=== PATIENT | female | born 1975 | race Caucasian/White ===

== ENCOUNTER 2019-04-02 09:33 | Outpatient (CLI) | payer OTHER ==
--- NOTE | 2019-04-02 15:10 | Ultrasound Report ---
ULTRASOUND PELVIC COMPLETE ULTRASOUND TRANSVAGINAL HISTORY: Other specified abnormal uterine and vaginal bleeding. COMPARISON: 01/31/16. TECHNIQUE: Transabdominal and transvaginal ultrasound with color doppler interrogation. FINDINGS: Uterus: The uterus is moderately enlarged measuring 14 x 9 x 8 cm. A large fundal fibroid is suspected measuring up to 8.5 cm in diameter. An intramural fibroid is identified in the posterior wall measuring 5.9 cm. Additional smaller fibroids are likely present. Small lesion in the cervix measuring up to 1.2 cm is again identified and unchanged. The significance of this is unclear. Endometrium: The endometrium is poorly imaged secondary to fibroid disease. I believe the endometrium measures 13 mm in thickness. No mass or fluid collection. Right ovary: 4.2 x 1.7 x 2.1 cm. No focal abnormality. Left ovary: 3.9 x 3.6 x 2.6 cm. A 3.0 cm complex cyst with fine internal septations is identified suggestive of a hemorrhagic cyst. No pelvic fluid or mass is identified. Normal color doppler interrogation. IMPRESSION: Uterine fibroid disease as described. This appears slightly more advanced than the exam in 2016. Complex left ovarian cyst consistent with a hemorrhagic cyst. Consider followup in 6 weeks to ensure resolution.
== END 2019-04-02 09:34 | disposition home or self-care (01) ==
LOC: US 09:33
PROVIDERS: ATTEND Obstetrics & Gynecology
DX: D25.1 Intramural leiomyoma of uterus (principal); N83.202 Unspecified ovarian cyst, left side
CPT/HCPCS: 76830; 76856

== ENCOUNTER 2019-07-29 09:21 | Day surgery (SDC) | payer OTHER ==
[2019-07-22 10:41] LABS: Hematocrit 25.9 % (30.3-42.9); Hemoglobin 8.3 gm/dl (10.1-14.3); Mean Corpuscular HGB Conc 32 % (30-34); Mean Corpuscular Volume 74 fl (79-97); Platelet Count 521 K/mm3 (140-440); Red Blood Count 3.52 M/mm3 (3.65-5.03); Red Cell Distribution Width 15.7 % (13.2-15.2)
--- NOTE | 2019-07-28 22:12 | History and Physical Report ---
History of Present Illness Date of examination: 07/28/19 Chief complaint: Dysfunctional Uterine Bleeding History of present illness: Pt is a 44 year old female who presents for surgical evaluation of dysfunctional uterine bleeding secondary to inadequate in-office endometrial biopsy. Pt does report intermittent dyspnea that has not yet been evaluated. 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 History: fibroids Family/Genetic History: none Social history: no significant social history, - Obstetrical History : 2 Para: 2 Hx # Term Pregnancies: 2 Number of Pregnancies: 0 Spontaneous Abortions: 0 Induced : 0 Number of Living Children: 2 Medications and Allergies Allergies Allergy/AdvReac Type Severity Reaction Status Date / Time No Known Allergies Allergy Unverified 01/31/16 09:45 Home Medications Medication Instructions Recorded Confirmed Last Taken Type No Known Home Medications [No 07/21/19 07/21/19 Unknown History Reported Home Medications] Review of Systems All systems: negative - Vital Signs Vital signs: Vital Signs Temp Pulse Resp BP Pulse Ox 98 F 72 18 126/65 100 07/22/19 10:15 07/22/19 10:15 07/22/19 10:15 07/22/19 10:15 07/22/19 10:15 Temp Pulse Resp BP Pulse Ox 98 F 72 18 126/65 100 07/22/19 10:15 07/22/19 10:15 07/22/19 10:15 07/22/19 10:15 07/22/19 10:15 - Physical Exam Breasts: Positive: deferred Cardiovascular: Regular rate Lungs: Positive: Clear to auscultation Abdomen: Positive: soft Extremities: Positive: normal Results Result Diagrams: 07/22/19 09:55 All other labs normal. Assessment and Plan A: Dysfunctional Uterine Bleeding Fibroid Uterus Anemia Thrombocytosis Intermittent Dyspnea P: Preop Chest Xray Proceed with Hysteroscopy, Myosure endometrial sampling and other indicated procedures
[~2019-07-29 09:21] MED LIST: ANCEF/STERILE WATER 2 GM/20 ML 2 GM/20 ML SYRINGE IV NR; LACTATED RINGERS 1,000 ML IV SCH
[2019-07-29] MEDS ORDERED: ZOFRAN IV PRN (09:32)
--- NOTE | 2019-07-29 09:33 | Anesthesia Day of Surgery ---
Anesthesia Day of Surgery - Day of Surgery Patient Examined: Yes Patient H&P Reviewed: Yes Patient is NPO: Yes
--- NOTE | 2019-07-29 09:37 | Anesthesia Consultation ---
Anesthesia Consult and Med Hx Date of service: 07/29/19 - Airway Anesthetic Teeth Evaluation: Good ROM Head & Neck: Adequate Mental/Hyoid Distance: Adequate Mallampati Class: Class III Intubation Access Assessment: Probably Good - Pre-Operative Health Status ASA Pre-Surgery Classification: ASA2 Proposed Anesthetic Plan: General - Pulmonary Hx Respiratory Symptoms: Yes (Dyspnea) - Central Nervous System Hx Psychiatric Problems: No - Hematic Hx Anemia: Yes - Other Systems Hx Cancer: No
[2019-07-29] MEDS ORDERED: XYLOCAINE MPF 2% ONE (10:00)
[2019-07-29] MEDS ORDERED: DECADRON ONE (10:00)
[2019-07-29] MEDS ORDERED: ZOFRAN ONE (10:00)
[2019-07-29] MEDS ORDERED: PHENYLEPHRINE/NS Syringe 1,000 MCG/10 ML IV ONE (10:00)
[2019-07-29 10:01] LABS: Hematocrit 28.4 % (30.3-42.9); Hemoglobin 8.8 gm/dl (10.1-14.3); Mean Corpuscular HGB Conc 31 % (30-34); Mean Corpuscular Volume 73 fl (79-97); Platelet Count 460 K/mm3 (140-440); Red Blood Count 3.92 M/mm3 (3.65-5.03); Red Cell Distribution Width 15.4 % (13.2-15.2)
[2019-07-29 10:16] LABS: BUN/Creatinine Ratio 16; Blood Urea Nitrogen 11 mg/dL (7-17); Calcium 8.9 mg/dL (8.4-10.2); Hemolysis Index 0
--- NOTE | 2019-07-29 10:26 | XRay Report ---
CHEST 1 VIEW INDICATION: Pre Operative //intermittent SOB. COMPARISON: 07/25/2018 FINDINGS: Support devices: None. Heart: Within normal limits. Pulmonary vasculature: Normal. Lungs/Pleura: No acute air space or interstitial disease. Additional findings: None. IMPRESSION: Normal chest. Signer Name: Behzad Alcocer MD Signed: 07/29/2019 10:21 AM Workstation Name: [id number]
[2019-07-29] MEDS ORDERED: DIPRIVAN 10 MG/ML IV ONE (11:52)
[2019-07-29] MEDS ORDERED: SUBLIMAZE ONE (11:52)
[2019-07-29] MEDS ORDERED: NACL 0.9% IR ONE (12:11)
[2019-07-29] MEDS ORDERED: SILVER NITRATE TP ONE ×2 (12:18→12:33)
[2019-07-29] MEDS ORDERED: LACTATED RINGERS 1,000 ML ONE (12:38)
--- NOTE | 2019-07-29 12:52 | Operative Report ---
Operative Report Operative Report: Date of procedure: July 29, 2019 Preoperative diagnosis: 1)Dysfunctional Uterine Bleeding 2)Uterine Fibroids 3) Anemia Postoperative diagnosis: Same Procedure: 1)Hysteroscopy 2)Myosure Endometrial Sampling Surgeon: Ashlyn Zimmerman M.D. Findings: 1) 16-18 wk sized fibroid uterus 2) Proliferative endometrium Anesthesia: General Estimated blood loss: minimal Specimens: endometrial curettings to pathology Drains: None Complications: None Disposition: Stable to PACU Indications for procedure: Pt is a 44 year old female who presents for surgical evaluation of dysfunctional uterine bleeding secondary to inadequate in-office endometrial biopsy. Operation in detail: After the risks, benefits, alternatives and complications of the procedure were explained to the patient, she gave informed consent for the procedure. She was subsequently taken to the operating room and placed in the dorsal supine position with her IV noted to be running well. SCDs noted to be in place and functioning. General anesthesia was then induced without difficulty. The patient was in placed in dorsal lithotomy position and prepped and draped in normal sterile fashion. A timeout was performed. An exam under anesthesia was performed yielding a large anteverted uterus. A red rubber catheter was used to drain the bladder yielding clear urine. An open sided speculum was then placed into the vagina for adequate visualization of the cervix. The anterior lip of the cervix was then grasped with a tenaculum for traction. There was difficulty passing a sound into the uterus secondary to the location of the uterine fibroids. The hysteroscope was introduced into the cervix and hydrodilation was used to allow adequate space for passage of the hysteroscope into the endometrial cavity. Next the endometrial cavity was visualized which revealed a proliferative emdometrium. The Myosure device was used to obtain an endometrial sample. All curettings were sent to pathology. All instruments were removed from the uterus atraumatically. At this time, the single-tooth tenaculum was removed from the cervix. Silver nitrate was placed over the tenaculum puncture sites for hemostasis. All instruments were removed from the vagina atraumatically and the procedure was ended. The patient was placed into the dorsal supine position and extubated without difficulty. She was subsequently taken to the PACU in stable condition. She tolerated the procedure well. All counts were correct 2.
--- NOTE | 2019-07-29 13:02 | Short Stay Summary ---
Short Stay Documentation Date of service: 07/29/19 - History H&P: dictated Social history: no significant social history, - Allergies and Medications Current Medications: Allergies No Known Allergies Allergy (Unverified 01/31/16 09:45) Home Medications Medication Instructions Recorded Confirmed Last Taken Type No Known Home Medications [No 07/21/19 07/21/19 Unknown History Reported Home Medications] Active Medications Fentanyl (Sublimaze) 50 mcg IV Q5MIN PRN PRN Reason: Pain , Severe (7-10) Stop: 07/29/19 20:00 Lactated Ringer's (Lactated Ringers) 1,000 mls @ 75 mls/hr IV DIRECT FREDO Last Admin: 07/29/19 10:15 Dose: 75 mls/hr Documented by: Cefazolin Sodium (Ancef/Sterile Water 2 Gm/20 Ml) 2 gm in 20 mls @ 80 mls/hr IV PREOP NR; Protocol Stop: 07/29/19 23:45 Ondansetron HCl (Zofran) 4 mg IV ONCE PRN PRN Reason: Nausea And Vomiting Stop: 07/29/19 16:00 - Physical exam Breasts: deferred - Brief post op/procedure progress note Date of procedure: 07/29/19 Pre-op diagnosis: 1) DUB 2) Fibroid Uterus Post-op diagnosis: same Procedure: Hysteroscopy, Myosure endometrial sampling Anesthesia: GETA Findings: 1) 16-18 wk sized fibroid uterus 2) Proliferative endometrium Surgeon: MATHIEU RAMOS Estimated blood loss: minimal Pathology: list (endometrial sampling) Specimen disposition: to lab Condition: stable - Hospital course Hospital course: Pt underwent hysteroscopy, Myosure endometrial sampling which she tolerated well. She was observed in the PACU until she met discharge criteria. She will follow up in the office next week. - Disposition Condition at discharge: Stable Disposition: DC- TO HOME OR SELFCARE - Discharge Diagnoses (1) DUB (dysfunctional uterine bleeding) Status: Acute (2) Fibroid uterus Status: Acute Qualifiers: Uterine leiomyoma location: unspecified location Qualified Code(s): D25.9 - Leiomyoma of uterus, unspecified (3) Anemia Status: Acute Qualifiers: Anemia type: unspecified type Qualified Code(s): D64.9 - Anemia, unspecified Short Stay Discharge Plan Activity: other (Nothing in vagina, no baths, no intercourse for 4 weeks ) Weight Bearing Status: Full Weight Bearing Diet: regular Follow up with: HUA BERUMEN MD [Primary Care Provider] - 7 Days MATHIEU RAMOS MD [Staff Physician] - 7 Days (Please call to schedule appt ) Prescriptions: Docusate Sodium [Colace] 100 mg PO BID PRN #60 capsule PRN Reason: Constipation Ferrous Sulfate [Feosol 325 MG tab] 325 mg PO BID #60 tablet metroNIDAZOLE [Flagyl] 500 mg PO Q12HR #14 tab Ibuprofen [Motrin] 800 mg PO Q8HR PRN #30 tablet PRN Reason: Pain, Moderate (4-6) oxyCODONE /ACETAMINOPHEN [Percocet 5/325] 1 tab PO Q6HR PRN #30 tablet PRN Reason: Pain
[2019-07-29] MEDS: SUBLIMAZE IV PRN ×2 (13:05→13:17)
[2019-07-29 13:45] VITALS: BP 133/77
--- NOTE | 2019-07-29 21:18 | Post Anesthesia Evaluation ---
- Post Anesthesia Evaluation Patient Participated: Yes Airway Patent: Yes Stable Respiratory Function: Yes Nausea/Vomiting: No Temp > 96.8F: Yes Pain Manageable: Yes Adequeate Hydration: Yes Anesthesia Complications: No Block Receding Appropriately: Not Applicable Patient on Ventilator: No
== END 2019-07-29 09:22 | disposition home or self-care (01) ==
LOC: OR 09:21
PROVIDERS: ATTEND Obstetrics & Gynecology
DX: N93.8 Other specified abnormal uterine and vaginal bleeding (principal); D64.9 Anemia, unspecified; R06.02 Shortness of breath; Z90.49 Acquired absence of other specified parts of digestive tract; Z98.890 Other specified postprocedural states; Z79.899 Other long term (current) drug therapy
CPT/HCPCS: 36415; 58558; 71045; 80048; 81025; 85025; 85027; 86850; 86900; 86901; 88305; A4217; C1782; J0690; J1100; J2370; J2405; J2704; J3010; J7120

== ENCOUNTER 2019-08-27 06:09 | Observation (INO) | payer OTHER ==
[2019-08-22 09:55] LABS: Hematocrit 29.5 % (30.3-42.9); Hemoglobin 9.3 gm/dl (10.1-14.3); Mean Corpuscular HGB Conc 32 % (30-34); Mean Corpuscular Volume 75 fl (79-97); Platelet Count 539 K/mm3 (140-440); Red Blood Count 3.95 M/mm3 (3.65-5.03)
[2019-08-22 10:00] LABS: Red Cell Distribution Width 20.4 % (13.2-15.2)
--- NOTE | 2019-08-22 10:30 | Anesthesia Consultation ---
Anesthesia Consult and Med Hx Date of service: 08/27/19 - Airway Anesthetic Teeth Evaluation: Partials ROM Head & Neck: Adequate Mental/Hyoid Distance: Adequate Mallampati Class: Class III Intubation Access Assessment: Possibly Difficult (previous easy LMA 4) - Pulmonary Exam CTA: Yes - Cardiac Exam Cardiac Exam: RRR - Pre-Operative Health Status ASA Pre-Surgery Classification: ASA2 Proposed Anesthetic Plan: General Nerve Block: TAP - Pulmonary Hx Smoking: No Hx Respiratory Symptoms: No - Cardiovascular System Hx Hypertension: No Hx Heart Attack/AMI: No - Central Nervous System CVA: No - Gastrointestinal Hx Gastroesophageal Reflux Disease: No - Endocrine Hx Renal Disease: No Hx Liver Disease: No Hx Insulin Dependent Diabetes: No Hx Non-Insulin Dependent Diabetes: No Hx Thyroid Disease: No - Hematic Hx Anemia: Yes (Fe supplements) - Other Systems Hx Obesity: No - Additional Comments Anesthesia Medical History Comments: No hx anesthetic complications.
[2019-08-22 10:45] LABS: Anisocytosis 1+; Hypochromasia 1+; Platelet Estimate Consistent w Auto; Total Cells Counted 100
[~2019-08-27 06:09] MED LIST changes: -ANCEF/STERILE WATER 2 GM/20 ML 2 GM/20 ML SYRINGE IV NR; +CELECOXIB 200 MG CAP PO NR; +GABAPENTIN 300 MG CAP PO NR; -LACTATED RINGERS 1,000 ML IV SCH; +MIDAZOLAM 2 MG/2 ML INJ IV NR; +ceFAZolin/STERILE WATER 2 GM/20 ML SYRINGE IV NR; +fentaNYL 100 MCG/2 ML INJ IV PRN
[2019-08-27] MEDS ORDERED: BACTERIOSTATIC SODIUM CHLORIDE 0.9% 30 ML VIAL INFILTRATI ONE (06:48)
[2019-08-27] MEDS: LACTATED RINGERS 1,000 ML IV SCH ×2 (07:00→07:55)
[2019-08-27] MEDS ORDERED: BUPIVACAINE-EPINEPHRINE/PF 0.5%-1:200,000 (30 ML) VIAL INFILTRATI ONE (07:10)
[2019-08-27] MEDS ORDERED: LIDOCAINE (1%) 10 MG/1 ML VIAL 20 ML MDV ONE (07:10)
[2019-08-27] MEDS ORDERED: PROPOFOL 200 MG/20 ML VIAL IV ONE (07:15)
[2019-08-27] MEDS ORDERED: HYDROmorphone 1 MG/1 ML INJ ONE ×2 (07:15→10:53)
[2019-08-27] MEDS ORDERED: ROCURONIUM 50 MG/5 ML INJ IV ONE (07:15)
[2019-08-27] MEDS ORDERED: LIDOCAINE MPF (2%) 20 MG/1 ML VIAL 5 ML ONE (07:15)
--- NOTE | 2019-08-27 07:15 | History and Physical Report ---
History of Present Illness Date of examination: 08/27/19 Date of admission: 08/27/2019 Chief complaint: uterine fibroids History of present illness: 44-year-old who presents with a history of symptomatic uterine fibroids. The patient reports a history of heavy menses complicated by pain. Pelvic ultrasound demonstrated an enlarged fibroid uterus measuring 14 cm. The largest leiomyoma measured 8.5 cm and there was an additional myoma that was 5.9 cm. The patient has elected to undergo definitive surgical management and is scheduled to undergo robotic hysterectomy. Past History Past Medical History: high cholesterol Past Surgical History: appendectomy, cholecystectomy, section, other (hysteroscopy/polypectomy with Myosure) [employer] History: fibroids Social history: - Obstetrical History : 2 Para: 2 Hx # Term Pregnancies: 2 Number of Pregnancies: 0 Spontaneous Abortions: 0 Induced : 0 Number of Living Children: 2 Medications and Allergies Allergies Allergy/AdvReac Type Severity Reaction Status Date / Time No Known Allergies Allergy Unverified 08/18/19 16:06 Home Medications Medication Instructions Recorded Confirmed Last Taken Type Docusate Sodium [Colace] 100 mg PO BID PRN #60 capsule 07/29/19 08/18/19 Unknown Rx Ferrous Sulfate [Feosol 325 MG tab] 325 mg PO BID #60 tablet 07/29/19 08/18/19 Unknown Rx Active Meds: Active Medications Cefazolin Sodium (Ancef/Sterile Water 2 Gm/20 Ml) 2 gm IV PREOP NR Stop: 08/27/19 23:45 Celecoxib (Celebrex) 200 mg PO PREOP NR Stop: 08/27/19 16:00 Fentanyl (Sublimaze) 100 mcg IV ONCE PRN PRN Reason: sedation for nerve block Stop: 08/27/19 16:00 Gabapentin (Gabapentin) 300 mg PO PREOP NR Stop: 08/27/19 16:00 Lactated Ringer's (Lactated Ringers) 1,000 mls @ 100 mls/hr IV DIRECT FREDO Last Admin: 08/27/19 07:00 Dose: 100 mls/hr Documented by: Midazolam HCl (Versed) 2 mg IV PREOP NR Stop: 08/27/19 16:00 Review of Systems All systems: negative Genitourinary: vaginal bleeding, pelvic pain - Vital Signs Vital signs: Vital Signs Temp Pulse Resp BP Pulse Ox 98.2 F 80 20 128/86 100 08/22/19 09:20 08/22/19 09:20 08/22/19 09:20 08/22/19 09:20 08/22/19 09:20 Temp Pulse Resp BP Pulse Ox 98.2 F 80 20 128/86 100 08/22/19 09:20 08/22/19 09:20 08/22/19 09:20 08/22/19 09:20 08/22/19 09:20 - Physical Exam Breasts: Positive: deferred Cardiovascular: Regular rate Lungs: Positive: Clear to auscultation Results Result Diagrams: 08/22/19 09:25 All other labs normal. Assessment and Plan - Patient Problems (1) Anemia Current Visit: No Status: Acute Qualifiers: Plan to address problem: Scheduled to undergo a robotic hysterectomy (2) DUB (dysfunctional uterine bleeding) Current Visit: No Status: Acute (3) Fibroid uterus Current Visit: No Status: Acute Qualifiers:
[2019-08-27] MEDS ORDERED: NEOMY 40 MG/POLYMYXIN B 200,000 UNITS/ML (GU) AMPULE IR ONE ×2 (07:20→08:43)
[2019-08-27] MEDS ORDERED: ceFAZolin/Water 2 GM/20 ML 2 GM/20 ML SYRINGE IV NR (08:00)
[2019-08-27] MEDS ORDERED: SODIUM CHLORIDE 0.9% IRRIG SOLN 2000 ML IR ONE (08:44)
[2019-08-27] MEDS ORDERED: GLYCOPYRROLATE 0.4 MG/2 ML INJ ONE (10:03)
[2019-08-27] MEDS ORDERED: NEOSTIGMINE 10MG/10 ML INJ MDV ONE (10:03)
[2019-08-27] MEDS ORDERED: ONDANSETRON 4 MG/2 ML INJ ONE (10:05)
[2019-08-27] MEDS ORDERED: KETOROLAC 30 MG/1 ML INJ ONE (10:05)
[2019-08-27] MEDS ORDERED: LACTATED RINGERS 1,000 ML ONE (10:06)
[2019-08-27] MEDS ORDERED: IBUPROFEN 800 MG TAB PO PRN (10:21)
[2019-08-27] MEDS ORDERED: MORPHINE 4 MG/1 ML INJ IV PRN (10:21)
[2019-08-27] MEDS ORDERED: ACETAMINOPHEN 325 MG TAB PO PRN (10:21)
[2019-08-27] MEDS ORDERED: oxyCODONE /ACETAMINOPHEN 5-325MG TAB PO PRN (10:21)
[2019-08-27] MEDS ORDERED: ONDANSETRON 4 MG/2 ML INJ IV PRN (10:21)
--- NOTE | 2019-08-27 10:21 | Operative Report ---
Operative Report Operative Report: Date of surgery: 08/27/2019 Preoperative diagnoses: Symptomatic uterine fibroids; menorrhagia; dysmenorrhea Postoperative diagnoses: Same as above; pelvic adhesive disease Procedure: Robotic hysterectomy; lysis of adhesions Surgeon: Albania Martinez M.D. Information Systems Specialist: Jane Zimmerman Anesthesia: Gen. endotracheal anesthesia Estimated blood loss: 350 mL Pathology: Uterus, cervix, leiomyoma Indication: 44-year-old with a history of symptomatic uterine fibroids. The patient reported worsening of her clinical symptoms and elected to undergo definitive surgical management. Procedure: The patient was taken to the operating room and given general endotracheal anesthesia without complication. She is prepped and draped in a normal sterile fashion. A bivalve speculum was placed in the patient's vagina and a single- tooth tenaculum placed on the anterior lip of the cervix. The uterus was sounded with the uterine sound. A [employer] uterine manipulator was placed in the bivalve speculum was then removed. Attention was then turned to the patient's abdomen where a millimeter supra umbilical skin incision was then made. A Veress needle was placed and peritoneal entry was verified water-filled syringe. Insufflation of the peritoneal cavity was performed with CO2 gas. The 12 mm trocar was then placed under direct visualization. An additional 8 mm trocar was placed on the patient's left and right lateral side just opposite of the supraumbilical trocar. An additional 5 mm right lateral trocar was then placed as the accessory port. The patient was then placed in steep Trendelenburg. The da Blaire robot was then engaged. General survey revealed an enlarged fibroid uterus. The right adnexa was allegedly not visualize secondary to the adhesive disease. It was noted to be adherent to the right pelvic sidewall and the surrounding mesentery. The left adnexa was also noted to be adherent to the posterior aspect of the uterus and also the colon. There were multiple small bowel adhesions to the posterior aspect of the uterus. A fenestrated forcep was placed in arm 2 and a vessel sealer was placed in arm 1. The surgeon then transferred to the surgical console. Visualization was impaired secondary to the size of the luteal myoma. After extensive lysis of adhesions were performed the decision was made to perform a myomectomy in order to decompress the uterus. Unopposed scissors were use to excise the serosa of the corpus of the uterus. The scissors were used to excise only a myoma from the uterine bed. The right adnexa could not be adequately released from the right pelvic sidewall secondary to its close approximation to the ureter. The decision was made to regulate and transect the tubo-ovarian ligament. The broad ligament was coagulated and transected until the level of the uterine vessels. Attention was then turned to the left lateral aspect of the uterus. As noted previously the left adnexa was densely adherent also. The tubo-ovarian ligament was coagulated and transected to separate the adnexa from the uterus. The broad ligament was coagulated and transected. Once at the level of the uterine vessels the vessels were coagulated and transected. The tubo-ovarian ligament was then coagulated and transected. The round ligament was then coagulated and transected also. The vesicouterine peritoneum was then entered from the patient's right side. The vesical peritoneum was then entered from the left and joined in the midline. Peritoneum was reflected off of the lower uterine segment. Uterine vessels were then coagulated and then transected. The blood supply to the uterus was adequately contained, a posterior colpotomy was made. The V care ring was visualized. Posterior colpotomy was created with the monopolar scissors. The incision was continued circumferentially until anterior colpotomy was made. The cervix and uterus were amputated from the vaginal cuff. Prior to removal of the uterus through the vagina of the uterus had to be bivalved to facilitate delivery through the vagina. The uterus was then removed along with the leiomyoma through the vagina and a warm laparotomy sponge was placed and maintain the pneumoperitoneum. The vaginal cuff was then closed in a running fashion with V lock suture. Irrigation of the pelvis was performed. Hemoblast and Surgicel was applied to the incision. Secondary to the significant adhesions the decision was made to leave the fallopian tubes intact. The supraumbilical 12 mm trocar site was closed with the Ab Arrington device. The skin was then reapproximated with 4-0 Monocryl. The tissue was sent to pathology which included the cervix , leiomyoma and uterus. The patient was then successfully extubated. She was then taken to the recovery room in stable condition. All sponge laps and needle counts were correct x2.
[2019-08-27] MEDS ORDERED: HYDROmorphone 1 MG/1 ML INJ IV PRN (10:47)
[2019-08-27] MEDS: D5W/LACTATED RINGERS 1,000 ML IV SCH ×2 (13:00→20:33)
--- NOTE | 2019-08-27 14:32 | Anesthesia Day of Surgery ---
Anesthesia Day of Surgery - Day of Surgery Patient Examined: Yes Patient H&P Reviewed: Yes Patient is NPO: Yes
[2019-08-27] MEDS: KETOROLAC 30 MG/1 ML INJ IV SCH (18:14)
[2019-08-27] MEDS ORDERED: ZOLPIDEM 5 MG TAB PO PRN (22:00)
[2019-08-28] MEDS: KETOROLAC 30 MG/1 ML INJ IV SCH ×2 (00:46→05:36)
[2019-08-28 04:38] LABS: Hematocrit 22.6 % (30.3-42.9); Hemoglobin 7.1 gm/dl (10.1-14.3)
[2019-08-28] MEDS: D5W/LACTATED RINGERS 1,000 ML IV SCH (05:36)
--- NOTE | 2019-08-28 08:12 | Progress Note ---
Assessment and Plan - Patient Problems (1) Anemia Current Visit: No Status: Acute Qualifiers: Plan to address problem: patient doing well discharge home once tolerates regular diet (2) DUB (dysfunctional uterine bleeding) Current Visit: No Status: Acute (3) Fibroid uterus Current Visit: No Status: Acute Qualifiers: Subjective - Subjective Date of service: 08/28/19 Interval history: Patient without any significant complaints. Tolerating clears. Pain well controlled Patient reports: appetite normal, voiding normally, pain well controlled Objective - Vital Signs Latest vital signs: Vital Signs Temp Pulse Resp BP Pulse Ox 08/28/19 05:36 18 08/28/19 05:24 98.7 F 92 H 15 110/63 97 08/28/19 01:07 99.1 F 98 H 14 107/55 98 08/28/19 00:46 18 08/27/19 21:05 98.7 F 91 H 18 113/57 98 08/27/19 20:30 18 08/27/19 15:24 98.3 F 81 18 116/63 99 08/27/19 11:45 98.1 F 84 14 123/67 99 08/27/19 11:15 97.7 F 86 14 122/61 97 08/27/19 11:00 83 12 145/79 95 08/27/19 10:53 12 08/27/19 10:45 76 12 139/70 99 08/27/19 10:35 90 13 149/74 99 08/27/19 10:30 82 11 L 127/72 100 08/27/19 10:25 82 11 L 140/62 100 08/27/19 10:20 97 F L 84 16 140/62 100 Intake and Output 08/27/19 08/28/19 08/28/19 22:59 06:59 14:59 Intake Total 1303.75 1069.583 Output Total 850 900 Balance 453.75 169.583 Intake: IV 943.75 889.583 D5lr 1,000 ml @ 125 mls/ 943.75 889.583 hr IV DIRECT FREDO Rx#: [id number] Oral 360 Intake, Free Water 180 Output: Urine 850 900 Indwelling Catheter 850 900 Other: Total, Intake Amount 360 Total, Output Amount 850 900 Voiding Method Indwelling Catheter - Exam Abdomen: Present: normal appearance - Labs Labs: Abnormal lab results 08/28/19 Range/Units 03:55 Hgb 7.1 L (10.1-14.3) gm/dl Hct 22.6 L (30.3-42.9) %
--- NOTE | 2019-08-28 08:13 | Discharge Summary ---
Providers - Providers Date of Admission: 08/27/19 10:21 Date of discharge: 08/28/19 Attending physician: VANESSA RAMIREZ Primary care physician: HUA BERUMEN Hospitalization Reason for admission: other (Fibroids and DUB) Procedure: other (robotic hysterectomy) Discharge diagnosis: other (Fibroids) Hospital course: Patient admitted the day of surgery for a robotic hysterectomy. See op note. Postop uncomplicated Condition at discharge: Good Disposition: DC-01 TO HOME OR SELFCARE - Discharge Diagnoses (1) Anemia Status: Acute Qualifiers: (2) DUB (dysfunctional uterine bleeding) Status: Acute (3) Fibroid uterus Status: Acute Qualifiers: Plan - Discharge Medications Prescriptions: Docusate Sodium [Colace] 100 mg PO BID PRN #60 capsule PRN Reason: Constipation Ferrous Sulfate [Feosol 325 MG tab] 325 mg PO BID #60 tablet Ibuprofen [Motrin] 800 mg PO Q8HR PRN #60 tablet PRN Reason: Pain, Mild (1-3) oxyCODONE /ACETAMINOPHEN [Percocet 5/325] 1 tab PO Q6HR PRN #30 tablet PRN Reason: Pain - Provider Discharge Summary Activity: no sex for 6 weeks, no heavy lifting 4 weeks, no strenuous exercise Diet: routine Instructions: routine Additional instructions: [] Smoking cessation referral if applicable(refer to patient education folder for contact #) [] Refer to [facility] Booklet Call your doctor immediately for: * Fever > 100.5 * Heavy vaginal bleeding ( >1 pad per hour) * Severe persistent headache * Shortness of breath * Reddened, hot, painful area to leg or breast * Drainage or odor from incision. * Keep incision clean and dry at all times and follow doctor's instructions regarding bathing/showering schedule followup in 4 weeks - Follow up plan
[2019-08-28 13:51] VITALS: BP 110/54
== END 2019-08-28 14:30 | disposition home or self-care (01) ==
LOC: OR 06:09 → OB 10:21
PROVIDERS: ADMIT Obstetrics & Gynecology; ATTEND Obstetrics & Gynecology
DX: D25.9 Leiomyoma of uterus, unspecified (principal); E78.00 Pure hypercholesterolemia, unspecified; D64.9 Anemia, unspecified; N93.8 Other specified abnormal uterine and vaginal bleeding; Z90.49 Acquired absence of other specified parts of digestive tract
CPT/HCPCS: 36415; 58572; 64450; 84703; 85007; 85014; 85018; 85025; 86850; 86900; 86901; 88307; 96374; 96375; 96376; A4217; G0378; J0690; J1170; J1885; J2250; J2270; J2405; J2704; J2710; J3010; J7120; J7121; S2900

== ENCOUNTER 2020-07-12 11:09 | Outpatient (CLI) | payer OTHER ==
[2020-07-12 12:06] LABS: Bacteria,Urine 1+ /HPF (Negative); Bilirubin,Urine NEG (Negative); Blood,Urine SM (Negative); Color,Urine Yellow (Yellow); Mucus,Urine FEW /HPF; Protein,Urine <15 mg/dL mg/dL (Negative); Urobilinogen,Urine < 2.0 mg/dL (<2.0)
--- NOTE | 2020-07-12 13:12 | XRay Report ---
ABDOMEN 2 VIEW(S) INDICATION / CLINICAL INFORMATION: UNSPECIFIED ABDOMINAL PAIN. COMPARISON: None available. FINDINGS: TUBES / LINES: None. BOWEL GAS PATTERN/EXTRALUMINAL GAS: No significant abnormality. No pneumatosis or secondary signs of free air. ADDITIONAL FINDINGS: No significant additional findings. IMPRESSION: 1. No acute abnormality. Signer Name: Biju Mendoza MD Signed: 07/12/2020 1:07 PM Workstation Name: [id number]
== END 2020-07-12 11:10 | disposition home or self-care (01) ==
LOC: LAB 11:09
PROVIDERS: ATTEND Internal Medicine
DX: N39.0 Urinary tract infection, site not specified (principal)
CPT/HCPCS: 74019; 81001; 87086

== ENCOUNTER 2020-07-15 08:25 | Outpatient (CLI) | payer OTHER ==
--- NOTE | 2020-07-15 13:34 | Ultrasound Report ---
ULTRASOUND RENAL INDICATION: UNSPECIFIED ABDOMINAL PAIN COMPARISON: Pelvic ultrasound 04/02/2019. FINDINGS: RIGHT KIDNEY: Size: 10.5 cm. Echogenicity: Normal. Cortical thickness: Normal. Stones: None. Hydronephrosis: None. Cyst or mass: None. LEFT KIDNEY: Size: 10.6 cm. Echogenicity: Normal. Cortical thickness: Normal. Stones: None. Hydronephrosis: None. Cyst or mass: None. Urinary Bladder: No definite intrinsic abnormality is seen. No right ureteral jet is demonstrated as is seen on the left though without evidence of right ureteral obstructive change this may not be sign ificant. Adjacent to the bladder on the right the large fibroid uterus is again noted. Free Fluid: None. Additional Findings: None. IMPRESSION: No acute sonographic abnormality of the kidneys Signer Name: Hardeep Santa MD Signed: 07/15/2020 1:29 PM Workstation Name: [id number]
== END 2020-07-15 08:26 | disposition home or self-care (01) ==
LOC: US 08:25
PROVIDERS: ATTEND Internal Medicine
DX: D25.9 Leiomyoma of uterus, unspecified (principal)
CPT/HCPCS: 76770

== ENCOUNTER 2020-08-25 11:11 | Day surgery (SDC) | payer OTHER ==
[2020-08-25] MEDS ORDERED: HYDROmorphone 1 MG/1 ML INJ ONE (11:39)
[2020-08-25] MEDS ORDERED: LIDOCAINE MPF (2%) 20 MG/1 ML VIAL 5 ML ONE (11:40)
[2020-08-25] MEDS ORDERED: propofoL 200 MG/20 ML VIAL IV ONE (11:40)
--- NOTE | 2020-08-25 11:52 | History and Physical Report ---
History of Present Illness Date of examination: 08/25/20 Date of admission: August 25, 2020 Chief complaint: Chronic pelvic pain; bilateral ovarian cyst History of present illness: 45-year-old -0-0-2 with a history of worsening chronic pelvic pain. Pelvic ultrasound demonstrated bilateral endometriomas. The patient has a history of a prior robotic hysterectomy that noted findings of extensive pelvic adhesive disease. The patient has elected to undergo a bilateral salpingo-oophorectomy and lysis of adhesions for relief of her pain. Past History Past Medical History: other (Uterine fibroids) Past Surgical History: appendectomy, cholecystectomy, other (Robotic hysterectomy; hysteroscopy and MyoSure) Social history: - Obstetrical History : 2 Para: 2 Hx # Term Pregnancies: 2 Number of Pregnancies: 0 Spontaneous Abortions: 0 Induced : 0 Number of Living Children: 2 Medications and Allergies Allergies Allergy/AdvReac Type Severity Reaction Status Date / Time No Known Allergies Allergy Unverified 08/24/20 15:36 Home Medications Medication Instructions Recorded Confirmed Last Taken Type Acetaminophen [Tylenol] 2 tab PO Q4H PRN 08/24/20 08/25/20 08/25/20 01:00 History Active Meds: Active Medications Lactated Ringer's (Lactated Ringers) 1,000 mls @ 125 mls/hr IV DIRECT FREDO Review of Systems All systems: negative Genitourinary: pelvic pain - Physical Exam Breasts: Positive: deferred Cardiovascular: Regular rate Lungs: Positive: Clear to auscultation Abdomen: Positive: normal appearance Results Result Diagrams: 08/25/20 12:20 All other labs normal. Assessment and Plan - Patient Problems (1) Chronic pelvic pain in female Current Visit: Yes Status: Acute Plan to address problem: Proceed with robotic assisted bilateral salpingo-oophorectomy and lysis of adhesions (2) Pelvic adhesive disease Current Visit: Yes Status: Acute (3) Adnexal mass Current Visit: Yes Status: Acute (4) Endometrioma Current Visit: Yes Status: Acute
[2020-08-25] MEDS ORDERED: ceFAZolin/Water 2 GM/20 ML 2 GM/20 ML SYRINGE IV NR (12:00)
[2020-08-25] MEDS ORDERED: LACTATED RINGERS 1,000 ML IV SCH (12:00)
[2020-08-25] MEDS ORDERED: MAGNESIUM OXIDE 400 MG TAB PO ONE (12:05)
[2020-08-25] MEDS ORDERED: CELECOXIB 200 MG CAP ONE (12:05)
[2020-08-25] MEDS ORDERED: ACETAMINOPHEN 500 MG TAB ONE (12:05)
[2020-08-25] MEDS ORDERED: GABAPENTIN 300 MG CAP ONE (12:06)
--- NOTE | 2020-08-25 12:09 | Anesthesia Consultation ---
Anesthesia Consult and Med Hx Date of service: 08/25/20 - Airway Anesthetic Teeth Evaluation: Partials (Upper) ROM Head & Neck: Adequate Mental/Hyoid Distance: Adequate Mallampati Class: Class II Intubation Access Assessment: Good - Pre-Operative Health Status ASA Pre-Surgery Classification: ASA2 Proposed Anesthetic Plan: General Nerve Block: TAP - Pulmonary Hx Smoking: No Hx Asthma: No Hx Respiratory Symptoms: No COPD: No Hx Pneumonia: No - Cardiovascular System Hx Hypertension: No Hx Heart Attack/AMI: No - Central Nervous System CVA: No Hx Psychiatric Problems: No - Gastrointestinal Hx Gastroesophageal Reflux Disease: No - Endocrine Hx Renal Disease: No Hx End Stage Renal Disease: No Hx Liver Disease: No Hx Insulin Dependent Diabetes: No Hx Non-Insulin Dependent Diabetes: No Hx Thyroid Disease: No - Hematic Hx Anemia: Yes (Fe supplements) - Other Systems Hx Cancer: No Hx Obesity: No
--- NOTE | 2020-08-25 12:09 | Anesthesia Day of Surgery ---
Anesthesia Day of Surgery - Day of Surgery Patient Examined: Yes Patient H&P Reviewed: Yes Patient is NPO: Yes
[2020-08-25] MEDS ORDERED: ONDANSETRON 4 MG/2 ML INJ IV PRN (12:10)
[2020-08-25] MEDS ORDERED: MIDAZOLAM 2 MG/2 ML INJ ONE (12:26)
[2020-08-25] MEDS ORDERED: BUPIVACAINE/PF (0.25%) 2.5 MG/ML 30 ML VIAL INFILTRATI ONE (12:26)
[2020-08-25] MEDS ORDERED: fentaNYL 100 MCG/2 ML INJ ONE (12:26)
[2020-08-25] MEDS ORDERED: SODIUM CHLORIDE 0.9% 500 ML 500 ML ONE (12:28)
[2020-08-25 13:36] LABS: Hematocrit 39.3 % (30.3-42.9); Hemoglobin 13.9 gm/dl (10.1-14.3); Mean Corpuscular HGB Conc 35 % (30-34); Mean Corpuscular Volume 86 fl (79-97); Platelet Count 375 K/mm3 (140-440); Red Blood Count 4.55 M/mm3 (3.65-5.03); Red Cell Distribution Width 12.8 % (13.2-15.2)
[2020-08-25] MEDS ORDERED: dexAMETHasone 20 MG/5 ML VIAL ONE (13:38)
[2020-08-25] MEDS ORDERED: ROCURONIUM 50 MG/5 ML INJ IV ONE (13:38)
[2020-08-25] MEDS ORDERED: ONDANSETRON 4 MG/2 ML INJ ONE ×2 (13:39→17:47)
[2020-08-25] MEDS ORDERED: SODIUM CHLORIDE 0.9% IRR 1,500 ML BOTTLE IR ONE (13:45)
[2020-08-25] MEDS ORDERED: SODIUM CHLORIDE 0.9% IRRIG SOLN 2000 ML IR ONE (13:45)
--- NOTE | 2020-08-25 14:02 | Progress Note ---
Regional Anesthesia Block - Regional Anesthesia Block Start Time: 12:39 Stop Time: 12:52 Performed By:: JESUS PICKARD Procedure: Capo Tap Block with Ultrasound Pt Id, consent, time out; performed. Pt on monitor, VSS stable, sedation given per pre-op RN. Sterile prep and drape. Left side Landmarks Identified with ultrasound. 3cc 1% lido skin wheel. Needle advance in plane, 15cc .25% bupivacaine with 15 m ns injected intimately with negatives aspiration. Right side Landmarks Identified with ultrasound. 3cc 1% lido skin wheel. Needle advance in plane, 15cc .25% bupivacaine with 15 m ns injected intimately with negatives aspiration Pt tolerated procedure will, VSS stable.
--- NOTE | 2020-08-25 15:38 | Operative Report ---
Operative Report Operative Report: Date of surgery: August 25, 2020 Preoperative diagnoses: Chronic pelvic pain; bilateral adnexal masses; end ometrioma; pelvic adhesive disease Postoperative diagnoses: Same as above Procedure: Robotic assisted bilateral salpingectomy; lysis of adhesions Surgeon: Albania Martinez M.D. Clinical Laboratory Service Teacher: Jane Zimmerman Anesthesia: Gen. endotracheal anesthesia Estimated blood loss: 450 mL Pathology: Endometriomas Indication: 45-year-old -0-0-2 with a history of worsening chronic pelvic pain with pelvic ultrasound findings of bilateral adnexal masses Procedure: The patient was taken to the operating room and given general endotracheal anesthesia without complication. She is prepped and draped in a normal sterile fashion. A sponge stick was placed in the patient's vagina. Attention was then turned to the patient's abdomen where a 12 millimeter supra umbilical skin incision was then made. A Veress needle was placed and peritoneal entry was verified water-filled syringe. Insufflation of the peritoneal cavity was performed with CO2 gas. The 12 mm trocar was then placed under direct visualization. An additional 8 mm trocar was placed on the patient's left and right lateral side just opposite of the supraumbilical trocar. An additional 12 mm right lateral trocar was then placed as the accessory port. The 12 mm trocar sites were closed with the Ab Arrington device and 0-vicryl suture. The patient was then placed in steep Trendelenburg. The da Blaire robot was then engaged. A fenestrated forcep was placed in arm 2 and a monopolar scissors was placed in arm 1. General survey revealed bilateral enlargement of the adnexa with multiple ovarian cyst consistent with bilateral endometriomas. There were extensive pelvic adhesions of the bowel to the adnexal masses. The surgeon then transferred to the surgical console. Extensive lysis of adhesions were performe d with the monopolar scissors. Meticulously the bowel was dissected off of the adnexal masses. Incidental cystotomy of the ovarian masses occurred with evidence of chocolate colored fluid. The adnexal masses were densely adherent to the pelvic sidewall and extensive lysis of adhesions had to be performed in order to isolate the adnexa from the sidewall. The infundibulopelvic ligament was isolated coagulated and transected. The adnexal masses were removed through the 12 mm trocar. Copious irrigation of the pelvis was performed. Hemoblast and Surgicel were placed on the surgical sites. The robot was disengaged. The trochars were then removed. The skin was then reapproximated with 4-0 Monocryl. The tissue was sent to pathology which bilateral ovaries and cyst consistent with endometriomas. The patient was then successfully extubated. She was then taken to the recovery room in stable condition. All sponge laps and needle counts were correct x2.
[2020-08-25] MEDS: HYDROmorphone 1 MG/1 ML INJ IV PRN ×4 (16:02→17:00)
[2020-08-25] MEDS: MEPERIDINE 25 MG/1 ML INJ IV PRN ×2 (16:20→16:39)
--- NOTE | 2020-08-25 16:34 | Post Anesthesia Evaluation ---
- Post Anesthesia Evaluation Patient Participated: Yes Airway Patent: Yes Stable Respiratory Function: Yes Nausea/Vomiting: No Temp > 96.8F: Yes Pain Manageable: Yes Adequeate Hydration: Yes Anesthesia Complications: No Block Receding Appropriately: Yes Patient on Ventilator: No
[2020-08-25 17:32] VITALS: BP 114/66
== END 2020-08-25 18:17 | disposition home or self-care (01) ==
LOC: OR 11:11
PROVIDERS: ATTEND Obstetrics & Gynecology
DX: R10.2 Pelvic and perineal pain (principal); G89.29 Other chronic pain; N73.6 Female pelvic peritoneal adhesions (postinfective); N83.02 Follicular cyst of left ovary; N83.01 Follicular cyst of right ovary; D64.9 Anemia, unspecified; N80.9 Endometriosis, unspecified; Z90.49 Acquired absence of other specified parts of digestive tract; Z98.891 History of uterine scar from previous surgery; Z79.899 Other long term (current) drug therapy; Z98.890 Other specified postprocedural states
CPT/HCPCS: 36415; 58661; 85027; 86850; 86900; 86901; 88305; A4217; J0690; J1100; J1170; J2175; J2250; J2405; J2704; J3010; J7040; J7120; S2900; 64450